=== PATIENT | male | born 1995 | race Native Hawaiian/Other Pacific Islander ===

== ENCOUNTER 2017-05-13 10:14 | Emergency (ER) | payer OTHER ==
[~2017-05-13 10:14] MED LIST: ERYC250 MG PO; FLEXERIL5 MG PO; MORPHINE S20 MG/5 ML PO; NAPROSYN500 MG PO; NKHM
[2017-05-13] MEDS ORDERED: CLINDAMYCIN150 MG PO (10:29)
== END 2017-05-13 11:44 | disposition home or self-care (01) ==
LOC: ED 10:14
DX: J02.9 Acute pharyngitis, unspecified (principal); Z90.49 Acquired absence of other specified parts of digestive tract

== ENCOUNTER 2017-07-09 23:07 | Emergency (ER) | payer OTHER ==
[~2017-07-09] VITALS: Ht 180.3 cm; Wt 79.4 kg
[~2017-07-09 23:07] MED LIST changes: +CLINDAMYCIN150 MG PO
[2017-07-10] MEDS ORDERED: CYCLOBENZAPRINE5 M3 PO (01:26)
[2017-07-10] MEDS ORDERED: Motrin,Rufen800 MG PO (01:26)
== END 2017-07-10 01:37 | disposition home or self-care (01) ==
LOC: ED 23:07
DX: S39.012A Strain of muscle, fascia and tendon of lower back, initial encounter (principal); F17.200 Nicotine dependence, unspecified, uncomplicated; X50.0XXA Overexertion from strenuous movement or load, initial encounter; Y93.43 Activity, gymnastics; Y92.39 Other specified sports and athletic area as the place of occurrence of the external cause; Y99.9 Unspecified external cause status

== ENCOUNTER 2018-07-08 | Emergency (ER) | payer SELFPAY ==
[~2018-07-08] MED LIST changes: +CYCLOBENZAPRINE5 M3 PO; +Motrin,Rufen800 MG PO
[2018-07-08] MEDS ORDERED: AMOXICILLIN500 M2 PO (13:47)
== END 2018-07-08 13:52 | disposition home or self-care (01) ==
DX: J02.9 Acute pharyngitis, unspecified (principal)

== ENCOUNTER 2019-04-28 10:46 | Emergency (ER) | payer SELFPAY ==
[~2019-04-28] VITALS: Ht 180.3 cm; Wt 81.6 kg
[~2019-04-28 10:46] MED LIST changes: +AMOXICILLIN500 M2 PO
[2019-04-28] MEDS ORDERED: NORCO 5-325 TA1 EACH PO (13:19)
== END 2019-04-28 13:35 | disposition home or self-care (01) ==
LOC: ED 10:46
DX: S92.315A Nondisplaced fracture of first metatarsal bone, left foot, initial encounter for closed fracture (principal); W20.8XXA Other cause of strike by thrown, projected or falling object, initial encounter; Y93.89 Activity, other specified; Y92.89 Other specified places as the place of occurrence of the external cause; Y99.8 Other external cause status

== ENCOUNTER 2019-08-06 09:48 | Emergency (ER) | payer SELFPAY ==
[~2019-08-06] VITALS: Ht 180.3 cm; Wt 81.6 kg
[~2019-08-06 09:48] MED LIST changes: +NORCO 5-325 TA1 EACH PO
[2019-08-06 11:56] LABS: BASO # 0.1 10*3/uL (0.0-0.1); BASO % 0.3 % (0.0-1.0); EOS # 0.1 10*3/uL (0.0-0.4); EOS % 0.5 % (1.0-4.0); HEMATOCRIT 45.3 % (42.0-52.0); HEMOGLOBIN 15.4 g/dl (14.0-18.0); LYMPH # 1.9 10*3/uL (1.3-4.4); LYMPH % 12.7 % (27.0-41.0); MEAN CELL VOLUME 87.1 fl (80.0-94.0); MEAN CORPUSCULAR HGB 29.6 pg (27.0-31.0); MEAN PLATELET VOLUME 9.7 fl (9.6-12.3); MONO % 6.8 % (3.0-9.0); NEUT # 11.7 10*3/uL (2.3-7.9); NEUT % 79.2 % (47.0-73.0); PLATELET COUNT AUTOMATED 256 10*3/uL (130-400); RED CELL DISTRI WIDTH 12.1 % (0-14.5); WHITE BLOOD COUNT 14.7 10*3/uL (4.8-10.8)
[2019-08-06 12:13] LABS: ALBUMIN 4.3 gm/dl (3.1-4.5); ALKALINE PHOSPHATASE 97 U/L (45-117); BUN 15 mg/dl (7-24); CHLORIDE 104 mmol/L (98-107); CREATININE 1.16 mg/dL (0.70-1.30); POTASSIUM 4.4 mmol/L (3.5-5.1); SGOT/AST 9 IU/L (3-35); SGPT/ALT 24 U/L (12-78); SODIUM 136 mmol/L (136-145); TOTAL PROTEIN 7.6 gm/dL (6.4-8.2)
== END 2019-08-06 20:29 | disposition short-term general hospital (02) ==
LOC: ED 09:48
PROVIDERS: Physician Assistant
DX: K65.1 Peritoneal abscess (principal); F17.200 Nicotine dependence, unspecified, uncomplicated; Z79.899 Other long term (current) drug therapy

== ENCOUNTER → 2020-05-20 | Outpatient (CLI) | payer OTHER | END | disposition home or self-care (01) | LOC: COVID19 14:33 | PROVIDERS: ATTEND Internal Medicine | DX: Z20.828 Contact with and (suspected) exposure to other viral communicable diseases (principal) ==

== ENCOUNTER 2021-02-05 01:24 | Emergency (ER) | payer OTHER ==
[~2021-02-05] VITALS: Ht 180.3 cm; Wt 79.4 kg
== END 2021-02-05 03:37 | disposition left against medical advice (07) ==
LOC: ED 01:24
DX: T15.92XA Foreign body on external eye, part unspecified, left eye, initial encounter (principal); Z53.21 Procedure and treatment not carried out due to patient leaving prior to being seen by health care provider; X58.XXXA Exposure to other specified factors, initial encounter; Y93.89 Activity, other specified; Y92.89 Other specified places as the place of occurrence of the external cause; Y99.8 Other external cause status

== ENCOUNTER 2021-04-09 03:15 | Emergency (ER) | payer SELFPAY ==
[~2021-04-09] VITALS: Ht 180.3 cm; Wt 76.2 kg
[2021-04-09 06:48] LABS: BASO % 0.3 % (0.0-1.0); EOS # 0.1 10*3/uL (0.0-0.4); EOS % 1.2 % (1.0-4.0); HEMATOCRIT 42.7 % (42.0-52.0); LYMPH # 2.8 10*3/uL (1.3-4.4); LYMPH % 23.3 % (27.0-41.0); MEAN CELL VOLUME 84.2 fl (80.0-94.0); MEAN CORPUSCULAR HGB 29.4 pg (27.0-31.0); MEAN CORPUSCULAR HGB CONC 34.9 g/dl (33.0-37.0); MEAN PLATELET VOLUME 9.3 fl (9.6-12.3); MONO # 0.7 10*3/uL (0.1-1.0); MONO % 6.2 % (3.0-9.0); NEUT # 8.2 10*3/uL (2.3-7.9); NEUT % 68.4 % (47.0-73.0); PLATELET COUNT AUTOMATED 255 10*3/uL (130-400); RED BLOOD COUNT 5.07 10*6/uL (4.50-5.90); RED CELL DISTRI WIDTH 12.1 % (0-14.5)
[2021-04-09 07:03] LABS: ALKALINE PHOSPHATASE 68 U/L (45-117); BUN 12 mg/dl (7-24); CHLORIDE 108 mmol/L (98-107); SGOT/AST 16 IU/L (3-35); SGPT/ALT 23 U/L (12-78); SODIUM 143 mmol/L (136-145)
== END 2021-04-09 08:47 | disposition left against medical advice (07) ==
LOC: ED 03:15
PROVIDERS: Emergency Medicine
DX: F10.129 Alcohol abuse with intoxication, unspecified (principal); F17.200 Nicotine dependence, unspecified, uncomplicated; Y90.9 Presence of alcohol in blood, level not specified

== ENCOUNTER 2023-04-10 09:07 | Emergency (ER) | payer OTHER ==
[~2023-04-10] VITALS: Wt 81.6 kg
[2023-04-10] MEDS ORDERED: ERYTHROMYCIN OPH1 GM OPH (09:37)
== END 2023-04-10 09:53 | disposition home or self-care (01) ==
LOC: ED 09:07
DX: H16.133 Photokeratitis, bilateral (principal); Z98.890 Other specified postprocedural states; Z87.891 Personal history of nicotine dependence

== ENCOUNTER 2023-12-12 11:53 | Emergency (ER) | payer OTHER ==
[~2023-12-12] VITALS: Wt 86.2 kg
[~2023-12-12 11:53] MED LIST changes: +ERYTHROMYCIN OPH1 GM OPH
[2023-12-12] MEDS ORDERED: EPINEPHrine/Lidocaine Hydroc 10 ML VIAL SC ONE (13:10)
[2023-12-12] MEDS ORDERED: Tdap Vaccine 0.5 ML SYR (Adult Vaccine) IM ONE (13:10)
== END 2023-12-12 13:48 | disposition home or self-care (01) ==
LOC: ED 11:53
DX: S61.512A Laceration without foreign body of left wrist, initial encounter (principal); Z98.890 Other specified postprocedural states; W20.8XXA Other cause of strike by thrown, projected or falling object, initial encounter; Y93.89 Activity, other specified; Y92.89 Other specified places as the place of occurrence of the external cause; Y99.0 Civilian activity done for income or pay